=== PATIENT | male | born 1960 | race Caucasian/White ===

== ENCOUNTER 2017-12-09 13:23 | Outpatient (CLI) | payer OTHER | END 2017-12-09 14:00 | disposition home or self-care (01) | LOC: NUCLEAR 13:23 | DX: G30.8 Other Alzheimer's disease (principal) | CPT/HCPCS: 78607; A9557 ==

== ENCOUNTER 2018-03-27 14:07 | Outpatient (CLI) | payer OTHER | END 2018-03-27 14:18 | disposition home or self-care (01) | LOC: RAD 14:07 | DX: J31.1 Chronic nasopharyngitis (principal); J45.50 Severe persistent asthma, uncomplicated ==

== ENCOUNTER 2019-06-15 11:26 | Outpatient (CLI) | payer OTHER | END 2019-06-15 13:54 | disposition home or self-care (01) | LOC: TOM 11:26 | DX: R42 Dizziness and giddiness (principal); R58 Hemorrhage, not elsewhere classified ==

== ENCOUNTER 2019-10-16 07:15 | Outpatient (CLI) | payer OTHER | END 2019-10-16 07:29 | disposition home or self-care (01) | LOC: SONOGRAMA 07:15 → MAMO-SONO 07:15 → SONOGRAMA 07:29 | PROVIDERS: ATTEND Internal Medicine | DX: E11.22 Type 2 diabetes mellitus with diabetic chronic kidney disease (principal); I10 Essential (primary) hypertension ==